=== PATIENT | female | born 1960 | race Caucasian/White ===

== ENCOUNTER 2017-06-09 14:56 | Emergency (ER) | payer MEDICAID ==
--- NOTE | 2017-06-09 16:25 | ED Physician Chart ---
ED Chief Complaint/HPI - Patient Information Date Seen:: 06/09/17 Time Seen:: 15:23 Chief Complaint:: L shoulder vague discomfort for one day. History of Present Illness:: Brought in by private auto with her daughter Patricia. Pt is primarily Korean speaking. Interpretation is provided by her daughter Patricia per pt's request. Pt came at a time when the ER was very busy without open bed. Pt was just put in her bed at the ER for me to examine. Pt states that she was under stress because of bad family news she received yesterday. ? transient lightheadedness. No syncope. No chest pain or discomfort. No palpitation. No PND, orthopena, or pedal edema. Pt denies any physical activity limitation. Pt states that she had same symptom a year ago when she was under stress. Pt denies any h/o L shoulder injury. Pt denies any depressed mood. Pt is very vague about her L shoulder symptom. It is not painful. It is constant and has no aggravating or relieving factors. No weakness or numbness. Allergies:: Allergies Allergy/AdvReac Type Severity Reaction Status Date / Time seafood Allergy Uncoded 06/09/17 15:43 Vitals:: Vital Signs - 8 hr 06/09/17 15:45 Temp 98.2 F HR 61 RR 18 BP 124/83 O2 Sat % 99 Historian:: Patient Family MD/PCP:: Dr. Alcocer LMP:: Postmenopausal. Review:: Nurse's Note Reviewed ED Review of Systems - Review of Systems General/Constitutional: No fever, No chills, No weight loss, No weakness, No diaphoresis, No edema, No loss of appetite Skin: No rash, No bruising Head: No headache, No light-headedness Eyes: No loss of vision, No pain, No diplopia ENT: No earache, No nasal drainage, No sore throat Neck: No neck pain, No swelling, No thyromegaly, No stiffness, No mass noted Cardio Vascular: No chest pain, No palpitations, No PND, No orthopnea, No edema Pulmonary: No SOB, No cough, No wheezing GI: No nausea, No vomiting, No pain G/U: No dysuria, No frequency, No hematuria Staff Nurse Midwife: No vaginal discharge, No abnormal vaginal bleed Musculoskeletal: Other (L shoulder discomfort.) Psychiatric: No prior psych history, No depression, Anxiety, No suicidal ideation, No homicidal ideation, No auditory hallucination, No visual hallucination Hematopoietic: No bruising, No lymphadenopathy Allergic/Immuno: No urticaria, No angioedema Neurological: No syncope, No focal symptoms, No weakness, No paresthesia, No headache, No dizziness, No confusion ED Past Medical History - Past Medical History Past Medical History: PUD/GERD Family History: Diabetes Melitus (father) Social History: Non Smoker, No Alcohol, No Drug Use, Single, Other (lives with her significant other.) Employment:: unemployed. Surgical History: None Psychiatricy History: None Medication: Reviewed Family Medical History - Family Member Father Ethnicity: Living Status: Still Living Hx Family Hypertension: Yes Hx Family Diabetes: Yes ED Physical Exam - Physical Examination General/Constitutional: Awake, Well-developed, well-nourished, Alert, No distress, GCS 15, Non-toxic appearing, Ambulatory Other Gen/Cons comments:: Breathes comfortably, speaks clearly, interacts normally, and ambulates without difficulty. Head: Atraumatic Eyes: Lids, conjuctiva normal, PERRL, EOMI Skin: No rash, No ecchymosis, Well hydrated, No lymphadenopathy ENMT: External ears, nose nl, Nasal exam nl, Oropharynx nl Neck: Nontender, Full ROM w/o pain, No JVD, No nuchal rigidity, No mass, No stridor Respiratory: Nl effort/Exclusion, Clear to Auscultation, No Wheeze/Rhonchi/Rales Cardio Vascular: RRR, No murmur, gallop, rubs GI: No tenderness/rebounding/guarding, No organomegaly, Normal BS's, Nondistended Other GI comments:: Abdomen is soft. Other Extremities comments:: L shoulder: FROM. No gross deformity, erythema, crepitus or open wound. Mild tenderness to palpation at posterior aspect. No detectable motor/sensory/ vascular deficit. Neuro/Psych: Alert/oriented (oriented x 3.), Mood normal, Normal gait, No focal deficits ED Labs/Radiology/EKG Results - Lab Results Results: Laboratory Tests 06/09/17 06/09/17 06/09/17 16:49 16:49 16:49 WBC 10.3 RBC 4.22 Hgb 13.0 Hct 37.0 L MCV 87.5 MCH 30.8 MCHC Differential 35.2 RDW 12.1 Plt Count 297 MPV 8.1 Neutrophils % 58.1 Lymphocytes % 34.0 Monocytes % 6.0 Eosinophils % 1.2 Basophils % 0.7 PT 9.9 INR 0.95 PTT (Actin FS) 21.4 L Sodium 138 Potassium 4.4 Chloride 105 Carbon Dioxide 29.5 Anion Gap 7.9 BUN 14 Creatinine 0.7 Est GFR ( Amer) > 60.0 Est GFR (Non-Af Amer) > 60.0 BUN/Creatinine Ratio 20.0 Glucose 108 H Calcium 9.8 Total Bilirubin 0.5 AST 21 ALT 22 Alkaline Phosphatase 76 Creatine Kinase 108 Troponin I Total Protein 8.1 Albumin 4.5 Globulin 3.6 Albumin/Globulin Ratio 1.3 06/09/17 16:49 WBC RBC Hgb Hct MCV MCH MCHC Differential RDW Plt Count MPV Neutrophils % Lymphocytes % Monocytes % Eosinophils % Basophils % PT INR PTT (Actin FS) Sodium Potassium Chloride Carbon Dioxide Anion Gap BUN Creatinine Est GFR ( Amer) Est GFR (Non-Af Amer) BUN/Creatinine Ratio Glucose Calcium Total Bilirubin AST ALT Alkaline Phosphatase Creatine Kinase Troponin I < 0.01 L Total Protein Albumin Globulin Albumin/Globulin Ratio Laboratory Last Values WBC 10.3 Th/cmm (4.8-10.8) 06/09/17 16:49 RBC 4.22 Mil/cmm (3.80-5.10) 06/09/17 16:49 Hgb 13.0 gm/dL (12-16) 06/09/17 16:49 Hct 37.0 % (41.0-60) L 06/09/17 16:49 MCV 87.5 fl (81-100) 06/09/17 16:49 MCH 30.8 pg (27.0-31.0) 06/09/17 16:49 MCHC Differential 35.2 pg (28.0-36.0) 06/09/17 16:49 RDW 12.1 % (11.5-20.0) 06/09/17 16:49 Plt Count 297 Th/cmm (150-400) 06/09/17 16:49 MPV 8.1 fl 06/09/17 16:49 Neutrophils % 58.1 % (40.0-80.0) 06/09/17 16:49 Lymphocytes % 34.0 % (20.0-50.0) 06/09/17 16:49 Monocytes % 6.0 % (2.0-10.0) 06/09/17 16:49 Eosinophils % 1.2 % (0.0-5.0) 06/09/17 16:49 Basophils % 0.7 % (0.0-2.0) 06/09/17 16:49 PT 9.9 SECONDS (9.5-11.5) 06/09/17 16:49 INR 0.95 (0.5-1.4) 06/09/17 16:49 PTT (Actin FS) 21.4 SECONDS (26.0-38.0) L 06/09/17 16:49 Sodium 138 mEq/L (136-145) 06/09/17 16:49 Potassium 4.4 mEq/L (3.5-5.1) 06/09/17 16:49 Chloride 105 mEq/L (98-107) 06/09/17 16:49 Carbon Dioxide 29.5 mEq/L (21.0-31.0) 06/09/17 16:49 Anion Gap 7.9 (7.0-16.0) 06/09/17 16:49 BUN 14 mg/dL (7-25) 06/09/17 16:49 Creatinine 0.7 mg/dL (0.6-1.2) 06/09/17 16:49 Est GFR ( Amer) > 60.0 ml/min (>90) 06/09/17 16:49 Est GFR (Non-Af Amer) > 60.0 ml/min 06/09/17 16:49 BUN/Creatinine Ratio 20.0 06/09/17 16:49 Glucose 108 mg/dL (70-105) H 06/09/17 16:49 Calcium 9.8 mg/dL (8.6-10.3) 06/09/17 16:49 Total Bilirubin 0.5 mg/dL (0.3-1.0) 06/09/17 16:49 AST 21 U/L (13-39) 06/09/17 16:49 ALT 22 U/L (7-52) 06/09/17 16:49 Alkaline Phosphatase 76 U/L (34-104) 06/09/17 16:49 Creatine Kinase 108 U/L (30-223) 06/09/17 16:49 Troponin I < 0.01 ng/mL (0.01-0.05) L 06/09/17 16:49 Total Protein 8.1 gm/dL (6.0-8.3) 06/09/17 16:49 Albumin 4.5 gm/dL (3.7-5.3) 06/09/17 16:49 Globulin 3.6 gm/dL 06/09/17 16:49 Albumin/Globulin Ratio 1.3 (1.0-1.8) 06/09/17 16:49 - Radiology Results Results: L shoulder X-ray: Based on my interpretation, no acute fx or subluxation. Official report is pending. C spine x-ray: Based on my interpretation, mild degenerative changes noticed. No acute fx or subluxation. Official report is pending. - EKG Interpretations EKG Time:: 16:39 Rate & Rhythm: NSR with VR 67 Comments:: No acute ischemic changes. ED Septic Shock - . Is Septic Shock (SBP<90, OR Lactate>4 mmol\L) present?: No - <6hrs of presentation: Vital Signs: Vital Signs - 8 hr 06/09/17 15:45 Temp 98.2 F HR 61 RR 18 BP 124/83 O2 Sat % 99 ED Reassessment (Disposition) - Reassessment Reassessment:: 1829 Pt has been repeatedly evaluated. Pt is comfortable. No new complaint or findings. Lab findings have been reviewed with pt. X-rays are pending. 1939 Pt feels much better. L shoulder and C spine X ray just became available. Radiological findings, lab, and EKG findings have been reviewed with pt. Pt requests to go home now and does not want further observation/management in hospital. Aftercare instructions have been given. Reassessment Condition:: Improved - Diagnosis Diagnosis:: L shoulder pain of musculoskeletal in etiology. Stable and improved. - Aftercare/Follow up Instructions Aftercare/Follow-Up Instructions:: Refer to Discharge Instructions Notes:: Continue present care. May take Tylenol 500 mg tab one tab po q6h prn pain. F/U with PCP Dr. Alcocer in one day for recheck and repeat lab study: BMP. Return to ER immediately if condition worsens or if any further questions/problems. Medication Prescribed:: None - Patient Disposition Discharge/Transfer:: Home Time:: 19:45 Condition at Disposition:: Stable, Improved ED Discharge Plan - Patient Disposition Admit/Discharge/Transfer: PT DISCHARGED HOME Condition at Disposition: Improved Instructions: Shoulder Pain
[2017-06-09 16:58] LABS: % BASOPHILS 0.7 % (0.0-2.0); % EOSINOPHILS 1.2 % (0.0-5.0); % NEUTROPHILS 58.1 % (40.0-80.0); MEAN CELL VOLUME 87.5 fl (81-100); MEAN CORPUSCULAR HEMOGLOBIN 30.8 pg (27.0-31.0); MEAN CORPUSCULAR HGB CONC 35.2 pg (28.0-36.0); MEAN PLATELET VOLUME 8.1 fl; PLATELET COUNT 297 Th/cmm (150-400); RED BLOOD COUNT 4.22 Mil/cmm (3.80-5.10); RED CELL DISTRIBUTION WIDTH 12.1 % (11.5-20.0); WHITE BLOOD COUNT 10.3 Th/cmm (4.8-10.8)
[2017-06-09 17:08] LABS: INR 0.95 (0.5-1.4); PROTHROMBIN TIME (TEST) 9.9 SECONDS (9.5-11.5)
[2017-06-09 17:11] LABS: ALB/GLOB RATIO 1.3 (1.0-1.8); ALKALINE PHOSPHATASE 76 U/L (34-104); ANION GAP 7.9 (7.0-16.0); BILIRUBIN,TOTAL 0.5 mg/dL (0.3-1.0); BUN - UREA NITROGEN 14 mg/dL (7-25); CALCIUM SERUM 9.8 mg/dL (8.6-10.3); CARBON DIOXIDE 29.5 mEq/L (21.0-31.0); CHLORIDE 105 mEq/L (98-107); CREATININE - SERUM 0.7 mg/dL (0.6-1.2); GLUCOSE 108 mg/dL (70-105); POTASSIUM SERUM 4.4 mEq/L (3.5-5.1); SGOT 21 U/L (13-39); SGPT/ALT 22 U/L (7-52); SODIUM SERUM 138 mEq/L (136-145)
--- NOTE | 2017-06-10 07:46 | Diagnostic Imaging Report ---
EXAM: Left shoulder joint HISTORY: Pain COMPARISON: None FINDINGS: Multiple views of right shoulder joint reviewed. The study demonstrates no evidence of fracture or dislocation. There is no evidence of subluxation. The acromion clinically joint is intact. The head of left humerus is well within the glenoid fossa. IMPRESSION: Normal examination of the left shoulder joint.
--- NOTE | 2017-06-10 07:51 | Diagnostic Imaging Report ---
Exam: Cervical spine. HISTORY: Pain Findings: Multiple views of cervical spine reviewed. The study demonstrates no evidence of fracture or dislocation. The vertebral bodies of normal height with preserved intervertebral disc spaces. The posterior elements are intact. The pedicles are normal. The odontoid process is normal. There is no evidence of prevertebral soft tissue swelling. IMPRESSION: Normal examination of cervical spine.
== END 2017-06-09 19:55 | disposition home or self-care (01) ==
LOC: ER 14:56
DX: M25.512 Pain in left shoulder (principal); K21.9 Gastro-esophageal reflux disease without esophagitis; Z87.11 Personal history of peptic ulcer disease
CPT/HCPCS: 36415-UA; 72050-TC; 73030-TC-LT; 80053-TC; 82550-TC; 84484-TC; 85025-TC; 85610-TC; 93005